=== PATIENT | male | born 1955 | race Caucasian/White ===

== ENCOUNTER 2016-08-31 16:38 | Emergency (ER) | payer OTHER, MEDICARE ==
[~2016-08-31] VITALS: Ht 167.6 cm; Wt 79.5 kg
[~2016-08-31 16:38] MED LIST: ALBU8.5H2 INHALATION; AZAT50TA6 PO; DEFE500T PO; EPIN0.3P2 IJ; GABA-502 PO; METO25TA99 PO; MOME13HF IH; MONT10TA20 PO; NORT25CA PO; OXYC20TA55 PO; OXYC5CAP4 PO; PANT20TA2 PO; POTA20TA16 PO; POTA20TA7 PO; PRE20 PO; RIFA550T3 PO; TEST200V20 IM; TIZA2TAB3 PO; ZOF8 PO
[2016-08-31 16:51] VITALS: BP 130/79; PULSE 94; RESP 16; O2SAT 95
[2016-08-31] MEDS ORDERED: HYDROcodone-APAP 5-325 mg Tablet PO ONE (17:20)
--- NOTE | 2016-08-31 17:44 | ED.REPORT ---
HPI-General Illness Date of Service Aug 31, 2016 ED Provider: Sloan Jo PA-C Mario is a 61-year-old male who presents with a laceration on his left middle finger. Patient reports he was using a surface merchandise planner when he caught the end of his left middle finger over the nail. Patient reports he is not up-to-date on his tetanus shot. He also admits to taking immunosuppressive medications ( Azathioprine). Nursing Notes Stated Complaint: SMASHED FINGER Chief Complaint: Laceration Nursing Notes Reviewed: Yes Allergies: Coded Allergies: NSAIDS (Non-Steroidal Anti-Inflamma (Verified Allergy, Severe, 08/31/16) aspirin (Verified Allergy, Severe, 08/31/16) cinnamon (Verified Allergy, Severe, hives, shortness of breath, swelling. , 08/31/16) hydroxyzine HCl (Verified Allergy, Severe, 08/31/16) hydroxyzine pamoate (Verified Allergy, Severe, 08/31/16) midazolam HCl (Verified Allergy, Severe, 08/31/16) Scheduled Albuterol HFA (Proair HFA) 8.5 Gm Hfa.aer.ad 2 PUFFS INHALATION Q4H Azathioprine (Imuran) 50 Mg Tablet 100 MG PO HS Azathioprine (Imuran) 50 Mg Tablet 50 MG PO QAM Cephalexin (Cephalexin) 500 Mg Tablet 500 MG PO QID Deferasirox (Exjade) 500 Mg Tab.disper 500 MG PO DAILY Epinephrine (Epipen 2-Karlos) 0.3 Mg/0.3 Ml Auto.injct 0.3 MG IJ PRN Gabapentin (Gabapentin) 300 Mg Capsule 600 MG PO TID Metoprolol Succinate ER (Metoprolol Succinate ER) 25 Mg Tab.er.24h 25 MG PO DAILY Mometasone/Formoterol (Dulera 200 Mcg/5 Mcg Inhaler) 13 Gm Hfa.aer.ad 2 PUFFS IH BID Montelukast (Singulair) 10 Mg Tablet 10 MG PO DAILY Nortriptyline (Nortriptyline) 25 Mg Capsule 100 MG PO HS Oxycodone ER (Oxycontin) 20 Mg Tab.er.12h 20 MG PO TID Pantoprazole DR (Pantoprazole DR) 20 Mg Tablet.dr 20 MG PO DAILY Potassium Chloride (Potassium Chloride) 20 Meq Tab.er.prt 20 MEQ PO PRN TAKE WITH FOOD Potassium Chloride ER (Klor-Con M20) 20 Meq Tab.er.prt 20 MEQ PO BID Prednisone (PredniSONE) 20 Mg Tablet 40 MG PO DAILY X 10 DYS Rifaximin (Xifaxan) 550 Mg Tablet 550 MG PO BID Testosterone Cypionate (Testosterone Cypionate) 200 Mg/1 Ml Vial 200 MG IM Q2WKS LST ONE 2MTHS Tizanidine (Tizanidine) 2 Mg Tablet 1 MG PO HS Scheduled PRN Ondansetron (Zofran) 8 Mg Tab 8 MG PO Q8HRS PRN PRN PRN For Nausea oxyCODONE (oxyCODONE) 5 Mg Capsule 10 MG PO Q4H PRN PRN For Pain General Time Seen by MD: 17:10 Chief Complaint Laceration Past Medical History Past Medical History cataracts hypertension migraines kidney stones hypokalemic episodic paralysis Past Surgical History tonsillectomy appendectomy right ankle surgery left knee surgery Smoking History Never Smoker Social History Alcohol Use: Denies alcohol use Drug Use: Denies drug use Ambulatory Status Independent Review of Systems Unless date otherwise in history of present illness Physical Exam General: Well appearing, well developed, well nourished, no acute distress. Left middle finger: Fingernail is traumatically absent, as well as the tissue and nail bed. Small portion of the distal nail is still present. Bleeding is minimal. Head: Atraumatic, normocephalic. Eyes: No scleral icterus or injection. No discharge. Vision grossly intact. ENT: Voice clear, hearing grossly intact. Respiratory: No respiratory distress, no increased work of breathing. Speaks in complete sentences. Skin: Warm and dry. Neurological: Grossly nonfocal. Psychological: alert and oriented. Speech appropriate, linear and logical. Behavior appropriate. Vital Signs Vital Signs Date Time Temp Pulse Resp B/P Pulse Ox O2 Delivery O2 Flow Rate FiO2 08/31/16 19:45 36.6 90 20 126/70 96 Room Air 08/31/16 16:51 36.8 94 16 130/79 95 Room Air Initial VS: Reviewed, Vital signs normal Interpretation & Diagnostics X-Ray Interpretation Xray Interpretation: PROCEDURE: X-RAY FINGERS, TWO VIEWS INDICATIONS: middle finger laceration. IMPRESSION: Open fracture distal phalanx left third finger. Interpretation / Wet Read by: Interpret - Radiologist, Interp - P Procedures Laceration Nailbed Mgmt Procedure Performed by: Allied health pract Consent / Setup / Site Prep: Informed consent provided, Consent from patient , Hand hygiene observed Digit Involved: Middle finger left Wound Length: 2 cm Digital Block Procedure: Lidocaine 1%, 5cc, 27g needle, Dorsal approach, Anesthesia obtained Wound Preparation: Normal saline Debridement: Moderate Irrigation: Copious Foreign Body Explore / Removal: Explored for foreign body Miscellaneous: Nailplate unavailable, Petrolatum gauze inserted Post-Procedure / Complications: Antibiotic oint applied, Dressing applied, No complications, Condition improved, Tolerated procedure well, Patient stable Re-Eval/Medical Decision Med Decision/Clinical Course I discussed this case with . who I was in examine the patient. 61-year-old male with a history of Crohn's disease and taking immunosuppressive medications present with a chief complaint of a left middle finger laceration. He was working on a surface planer and caught his left middle finger nail. Most of the nail as well as the nailbed removed. Patient reports he is not up-to-date on his tetanus. X-ray reveals a tuft fracture of the distal third phalanx, which the radiologist read as an open fracture. Examination of the injury does not reveal any exposed bone. I debrided a moderate amount of devitalized tissue including a portion of the distal nail. I irrigated with copious amounts of normal saline, applied antibiotic dressing, Xeroform dressing and wrapped with tube gauze. The patient tolerated the procedure well. Discharge the patient to follow-up with Dr. Kevin Silver early next week. I provided 5 days of Keflex as well as a tetanus shot. The patient has a robust home pain medication regimen and will continue that. Provided return precautions. Patient understands the plan and is comfortable with it. Discharge & Departure Primary Impression: Laceration Discharge Condition All VS Reviewed: Yes Condition: Stable Patient Instructions: Laceration (ED) Additional Instructions: Evaluation for a fingertip laceration emergency department. It looks as though you have removed the entire middle finger nail and nail bed and his accident. X -rays show a tuft fracture to the distal phalanx, however it does not appear to be an open fracture as I cannot visualize any bone in the wound. I cleaned the wound and irrigated with copious amounts of normal saline. We dressed it with some antibiotic ointment, Xeroform dressing and tube gauze. I contacted our orthopedic surgeon on-call who suggested that you follow up with Dr. Kevin Durant early next week. Please call them tomorrow to make arrangements. Until then, I will give you a prescription for Keflex 5 mg taken 4 times a day for 5 days. Pain should be managed with your usual home regimen. Be vigilant for signs of infection including increasing pain, redness, streaking, fever or malaise, and return to the emergency department for these or any other new or worsening symptoms. Referrals: Kevin Durant DO EDSupervising Provider for APC: Livan Peacock DO Attending Statement I took a look at the wound. I concur with the plan. Wound will be cleaned and dressed. Prophylactic antibiotics. Orthopedic follow-up. copies to: Kevin Durant Seth PA-C Aug 31, 2016 17:44 Livan Peacock DO Sep 02, 2016 23:16
[2016-08-31] MEDS ORDERED: TdaP Vaccine 0.5 mL Inj IM ONE (17:45)
--- NOTE | 2016-08-31 18:24 | DRSVH ---
PROCEDURE: X-RAY FINGERS, TWO VIEWS INDICATIONS: middle finger laceration. TECHNIQUE: PA view of the left hand and 2 additional views of the left third finger were obtained. COMPARISON: None. FINDINGS: Bones: There is an open fracture involving the distal shaft and tuft of the distal phalanx of the lef t third finger. Soft tissues: No suspicious soft tissue calcifications. IMPRESSION: Open fracture distal phalanx left third finger. Dictated by: Bari Welch M.D. on 08/31/2016 at 18:22 Approved by: Bari Welch M.D. on 08/31/2016 at 18:23
[2016-08-31] MEDS ORDERED: CEPH500T PO (19:29)
[2016-08-31 19:45] VITALS: BP 126/70; PULSE 90; RESP 20; O2SAT 96
== END 2016-08-31 19:46 | disposition home or self-care (01) ==
LOC: SED 16:38
DX: S61.213A Laceration without foreign body of left middle finger without damage to nail, initial encounter (principal); W31.2XXA Contact with powered woodworking and forming machines, initial encounter; Y93.89 Activity, other specified; Y92.9 Unspecified place or not applicable; Y99.8 Other external cause status; Z23 Encounter for immunization; Z88.6 Allergy status to analgesic agent; Z88.8 Allergy status to other drugs, medicaments and biological substances

== ENCOUNTER 2017-01-15 08:39 | Day surgery (SDC) | payer OTHER, MEDICARE ==
[~2017-01-15 08:39] MED LIST changes: +0.9% Sodium Chloride 1,000 ML IV SCH; -DEFE500T PO; +Lactated Ringer's 1,000 ML IV ONE; +OXYC-474 PO; -OXYC5CAP4 PO; -PANT20TA2 PO; +PANT40TA3 PO; -POTA20TA16 PO; -PRE20 PO; +Sodium Chloride LOK Flush 10 mL Syringe IV PRN; +fentaNYL-PF 50 mCg/mL 2 mL Inj IVPUSH PRN
[2017-01-15] MEDS ORDERED: Propofol 10,000 mCg/mL 20 mL Inj ONE (08:40)
[2017-01-15 09:01] VITALS: BP 136/79; PULSE 71; RESP 14; O2SAT 98
[2017-01-15] MEDS ORDERED: Lactated Ringer's 1,000 ML IV SCH (09:27)
[2017-01-15 10:11] VITALS: BP 84/74; PULSE 68; RESP 13; O2SAT 99
[2017-01-15 10:21] VITALS: BP 98/51; PULSE 66; RESP 16; O2SAT 98
[2017-01-15 10:31] VITALS: BP 115/66; PULSE 65; RESP 16; O2SAT 100
[2017-01-15 10:38] VITALS: BP 107/59; PULSE 65; RESP 16; O2SAT 97
--- NOTE | 2017-01-15 16:41 | PCM.HPANE ---
Patient Data Surgeon Admitting Provider: Attending Provider:Vimal Elliott MD Primary Care Physician:Marino Ascencio DO Other Provider: Reason for Visit Crohns Disease Involving Terminal Ileum Ht/WT & BMI Body Mass Index Allergies Coded Allergies: NSAIDS (Non-Steroidal Anti-Inflamma (Verified Allergy, Severe, 01/12/17) aspirin (Verified Allergy, Severe, 01/12/17) cinnamon (Verified Allergy, Severe, hives, shortness of breath, swelling. , 01/12/17) hydroxyzine HCl (Verified Allergy, Severe, 01/12/17) hydroxyzine pamoate (Verified Allergy, Severe, 01/12/17) midazolam HCl (Verified Allergy, Severe, 01/12/17) levofloxacin (Verified Allergy, Unknown, 01/12/17) Past Anesthesia History Anesthesia History: Denies:: Abnormal Airway, Anesthesia Reactions, Difficult Intubation, Fam Anesthesia Reaction, Fam Malignant Hypertherm, Malignant Hyperthermia Diabetes History Hx Diabetes?: No MRSA MRSA: No Medications Reported Medications Pantoprazole DR 40 Mg Tablet.dr40 Mg PO DAILY Ref 0 01/12/17 Oxycodone (Roxicodone)5 Mg Njvfoi19 Mg PO Q6H PRN For Pain Ref 0 01/12/17 Azathioprine (Imuran)50 Mg Izimla12 Mg PO QAM 03/31/16 Azathioprine (Imuran)50 Mg Zdoafi886 Mg PO HS 03/31/16 Tizanidine 2 Mg Tablet1 Mg PO HS 03/10/16 Testosterone Cypionate 200 Mg/1 Ml Oxll891 Mg IM Q2WKS LST ONE 2MTHS 03/10/16 Epinephrine (Epipen 2-Karlos)0.3 Mg/0.3 Ml Auto.injct0.3 Mg IJ PRN 03/10/16 Rifaximin (Xifaxan)550 Mg Vwfyww172 Mg PO BID 60 Days 08/25/15 Albuterol HFA (Proair HFA)8.5 Gm Hfa.aer.ad2 Puffs INHALATION Q4H #1 INHALER 08/25/15 Oxycodone ER (Oxycontin)20 Mg Tab.er.12h20 Mg PO TID 06/01/15 Metoprolol Succinate ER 25 Mg Tab.er.24h25 Mg PO DAILY 30 Days Ref 0 12/08/14 Gabapentin 300 Mg Qbdwojr860 Mg PO TID 30 Days Ref 0 11/16/14 Mometasone/Formoterol (Dulera 200 Mcg/5 Mcg Inhaler)13 Gm Hfa.aer.ad2 Puffs IH BID 06/01/14 Ondansetron (Zofran)8 Mg Tab8 Mg PO Q8HRS PRN PRN For Nausea 11/04/13 Nortriptyline 25 Mg Qapftbf571 Mg PO HS 30 Days 11/04/13 Potassium Chloride ER (Klor-Con M20)20 Meq Tab.er.prt20 Meq PO BID 30 Days Ref 0 11/04/13 Montelukast (Singulair)10 Mg Jwuwdg78 Mg PO DAILY 30 Days Ref 0 11/04/13 Discontinued Reported Medications Deferasirox (Exjade)500 Mg Tab.ahvnsh435 Mg PO DAILY Ref 4 08/11/16 Prednisone (PredniSONE)20 Mg Fjwljq02 Mg PO DAILY X 10 DYS Ref 0 04/07/16 Potassium Chloride 20 Meq Tab.er.prt20 Meq PO PRN 30 Days Ref 0 TAKE WITH FOOD 03/10/[address] 20 Mg Tablet.dr20 Mg PO DAILY Ref 0 03/10/16 oxyCODONE 5 Mg Zgcyyqe96 Mg PO Q4H PRN For Pain Ref 0 06/01/15 Discontinued Scripts Cephalexin 500 Mg Hqifat662 Mg PO QID #28 TABLET Ref 0 Prov:Sloan Jo PA-C 08/31/16 History History of ENT Problems?: No HEENT History: Positive for:: Cataracts (s/p surgery) Dysphagia Hearing Problem Denies:: Abnormal Airway Difficult Intubation Sinus Problem Denture Type: None Teeth Condition: Missing Teeth Hx of Heart Problems?: Yes Cardiovascular History: Positive for:: Hypertension Denies:: AICD Atrial Fibrillation Chest Pain Congestive Heart Failure Heart Murmur Pacemaker Rheumatic Fever Thrombophlebitis Valvular Heart Disease Hx of Respiratory Problem?: No Respiratory History: Denies:: Asthma COPD Cough Dyspnea Emphysema Hemoptysis Pneumonia Tuberculosis Hx Neurologic Problems?: No Neurological History: Positive for:: Alzheimer's Disease Denies:: CVA Dementia Dizziness Headaches Seizures Hx of GI Problems?: Yes Hx of Problems?: No Genitourinary History: Denies:: HX of Hemodialysis Kidney Stones Urinary Tract Infection Male Hx: Denies:: Prostate Problems Scrotal Mass Testicular Surgery Hx Musculoskeletal Problems?: Yes Musculoskeletal History: Positive for:: Fibromyalgia (?) Denies:: Back Injury Joint Replacement Musculoskeletal Trauma Hx of Psycho/Social Problems?: No Psycho Social History: Denies:: Anxiety Bipolar Disorder Hx Depression Suicide Attempt Hx Surgeries?: Yes (APPY, TONSIL, R ANKLE X4,L KNEE) Hx Any Other Health Problems?: Yes Other History: Positive for:: Hospitalization Denies:: Cancer Endocrine Disease Thyroid Disease History Blood Transfusions: Positive for:: Blood Transfusions Hx Diabetes: No Hx Alcohol Use: NoHx Substance Use: No Smoking Status: Never Smoker Have You Smoked inLast 12 mo: No Stop/Bang Treated for Sleep Apnea?: Yes Do You Have a CPAP Machine?: Yes Risk Assessment Category Category 1A: Patient has history of documented sleep apnea, and HAS NOT received any narcotic, sedative or anesthesia administration during this stay. Category 1B: Patient has history of documented sleep apnea, and HAS received any narcotic , sedative or anesthesia administration during this stay Category 2: Patient has SUSPECTED Obstructive Sleep Apnea, and HAS received any narcotic , sedative or anesthesia administration during this stay. Category 3: Patient has SUSPECTED Obstructive Sleep Apnea and HAS NOT received narcotic, sedative or anesthesia administration during this stay. Category 4: Outpatient in Procedural Areas with known sleep apnea or who screen positive for High Risk via the STOP/BANG questionnaire. Exam Exam Vital Signs Vital Signs Date Time Temp Pulse Resp B/P Pulse Ox O2 Delivery O2 Flow Rate FiO2 01/15/17 09:01 36.2 71 14 136/79 98 Room Air General Appearance: Alert, Oriented X3, Cooperative, No Acute Distress HEENT/AIRWAY: MP 2, Neck Movement (FROM), Mouth Opening (3 FBMO) Lungs: Clear to Auscultation, Normal Air Movement Heart: Exam Unremarkable, Regular Rate/Rhythm, No Murmurs/Rubs/Gallops Plan Impression Patient chart reviewed, patient interviewed and anesthestic plan with risks, benefits, and alternatives discussed, and informed consent obtained. NPO per Anesth. Guidelines: Yes ASA Physical Status: ASA3 Severe Disease (Alzheimers) Anesthetic Plan: GA Bene/Risks/Altern/Consents: Yes HP Complete Prior to Induction: Yes Jones Reynolds MD Jan 15, 2017 09:27
--- NOTE | 2017-01-15 16:42 | PCM.ANEP1 ---
Post Anesthesia PACU Phase 1 Assessment Vital Signs Vital Signs Date Time Temp Pulse Resp B/P Pulse Ox O2 Delivery O2 Flow Rate FiO2 01/15/17 10:38 65 16 107/59 97 Room Air 01/15/17 10:31 65 16 115/66 100 Room Air 01/15/17 10:21 66 16 98/51 98 Room Air 01/15/17 10:11 68 13 84/74 99 Room Air 01/15/17 09:01 36.2 71 14 136/79 98 Room Air Anesthetic Administered: GA Level of Alertness: Awake, talking FLETCHER's with Equal Strength: Yes Pain: No Nausea or Vomiting: No CV Function & Hydration Stable: Yes Airway Device: N/A Oxygen Delivery: Room Air Lungs: Clear to Auscultation, Normal Air Movement Dermatome Level: Full Sensation PACU Phase 2 Assessment Complications: No Follow up Care: N/A Patient Instructions Provided: N/A Jones Reynolds MD Jan 15, 2017 16:42
--- NOTE | 2017-01-15 19:03 | ENDO ---
[address] [address] ENDOSCOPY PROCEDURE PATIENT: DEVI MARTINEZ : 1955 MR#: [id number] ADMIT: 01/15/2017 JOB ID: [id number] PRIMARY PROVIDER: Marino Ascencio MD. PROCEDURE: Colonoscopy with biopsies. INDICATIONS: A 61-year-old male with longstanding Crohn's and a recent flare. He has recovered from this and is tapering down off of the prednisone. His azathioprine is back up to 200 mg a day. EQUIPMENT: [employer]-H180AL. SEDATION: Monitored anesthesia was provided by Dr. Jones Reynolds. COMPLICATIONS: None identified. BOWEL PREPARATION: Fair, adequate exam. PROCEDURE INFORMATION: After the risks and benefits were explained, written and verbal informed consent was obtained, the patient was brought into the endoscopy suite and placed into the left lateral decubitus position. Sedation was achieved as above. A digital rectal examination was accomplished. No significant pathology was appreciated. The scope was introduced into the rectum and advanced under direct visualization to the level of the cecum, as identified by the appendiceal orifice and ileocecal valve. The scope was slowly withdrawn to carefully examine the mucosa for any defects or lesions. Multiple direct views were made through the dentate line for exclusion of pathology. The colon was decompressed. The scope removed from the patient who tolerated the procedure well. FINDINGS: No proctitis. No colitis throughout. The terminal ileum appeared visually normal. I took random biopsies from the cecum, ascending, transverse, descending, sigmoid and rectum. There were a few hyperplastic-appearing polyps in the right colon that were included in the segmental biopsies specimens. Otherwise, no sinister pathology appreciated throughout. ENDOSCOPIC DIAGNOSES: Visually unremarkable colonoscopy to cecum and terminal ileum. RECOMMENDATIONS: 1. Await histopathology. 2. Follow up in GI Clinic for medicine adjustment depending on histopathology and any ongoing symptoms.
--- NOTE | 2017-01-17 16:16 | PATH ---
SURGICAL PATHOLOGY Attending Physician:Kee Barrientos CASE STATUS: Signed Out PATIENT NAME: DEVI MARTINEZ PID: [id number] : 1955 DATE COLLECTED:01/15/2017 21:12 SPECIMEN: 1: Colon, Biopsy 2: Colon, Biopsy 3: Colon, Biopsy 4: Colon, Biopsy 5: Colon, Biopsy 6: Rectum, Biopsy CLINICAL HISTORY: 1). CECAL COLON BIOPSY 2). ASCENDING COLON BIOPSY 3). TRANSVERSE COLON BIOPSY 4). DESCENDING COLON BIOPSY 5). SIGMOID COLON BIOPSY 6). RECTAL COLON BIOPSY FINAL DIAGNOSIS: 1. Cecum, Biopsy: Superficial portion of colorectal mucosa with no diagnostic abnormality. Negative for active inflammation, granulomas, dysplasia, and malignancy. 2. Ascending Colon, Biopsy: Superficial portion of colorectal mucosa with no diagnostic abnormality. Negative for active inflammation, granulomas, dysplasia, and malignancy. 3. Transverse Colon, Biopsy: Superficial portion of colorectal mucosa with no diagnostic abnormality. Negative for active inflammation, granulomas, dysplasia, and malignancy. 4. Descending Colon, Biopsy: Superficial portion of colorectal mucosa with no diagnostic abnormality. Negative for active inflammation, granulomas, dysplasia, and malignancy. 5. Sigmoid Colon, Biopsy: Superficial portion of colorectal mucosa with features of melanosis coli and otherwise no diagnostic abnormality. Negative for active inflammation, granulomas, dysplasia, and malignancy. 6. Rectum, Biopsy: Superficial portion of colorectal mucosa with no diagnostic abnormality. Negative for active inflammation, granulomas, dysplasia, and malignancy. ICD10: K52.9 GROSS DESCRIPTION: 1. Received in formalin, labeled with the patient's name and "cecal" is one fragment of sanchez soft tissue measuring 0.1 x 0.1 x 0.1 cm. The fragment is totally submitted in cassette 1A. 2. Received in formalin, labeled with the patient's name and "ascend" is one fragment of sanchez soft tissue measuring 0.2 x 0.2 x 0.1 cm. The fragment is totally submitted in cassette 2A. 3. Received in formalin, labeled with the patient's name and "trans" is one fragment of sanchez soft tissue measuring 0.2 x 0.1 x 0.1 cm. The fragment is totally submitted in cassette 3A. 4. Received in formalin, labeled with the patient's name and "descend" are two fragments of sanchez soft tissue ranging in size from less than 0.1 by less than 0.1 by less than 0.1 cm to 0.1 x 0.1 x 0.1 cm. All fragments are totally submitted in cassette 4A. 5. Received in formalin, labeled with the patient's name and "sig" are two fragments of sanchez soft tissue ranging in size from 0.1 x 0.1 x 0.1 cm to 0.2 x 0.1 x 0.1 cm. All fragments are totally submitted in cassette 5A. 6. Received in formalin, labeled with the patient's name and "rectal" are two fragments of sanchez soft tissue ranging in size from 0.1 x 0.1 x 0.1 cm to 0.2 x 0.1 x 0.1 cm. All fragments are totally submitted in cassette 6A. ([id number]) ICD-9 CODES: CPT CODES: 1: 24962 2: 88408 3: 53014 4: 61660 5: 27129 6: 38336 Electronically Signed Out Catherine Owusu MD [facility] [address], [place] [address] Technical component performed at [facility], [address], [place], [address]
== END 2017-01-15 23:59 | disposition home or self-care (01) ==
LOC: END 08:39
PROVIDERS: ATTEND Internal Medicine Gastroenterology
DX: K50.90 Crohn's disease, unspecified, without complications (principal); K63.5 Polyp of colon; K63.89 Other specified diseases of intestine; K62.1 Rectal polyp; K74.60 Unspecified cirrhosis of liver; G61.81 Chronic inflammatory demyelinating polyneuritis; Z79.51 Long term (current) use of inhaled steroids
CPT/HCPCS: 45380; J7120